=== PATIENT | male | born 1980 | race Caucasian/White ===

== ENCOUNTER 2020-12-08 | Emergency (ER) | payer OTHER, MEDICAID ==
[~2020-12-08] VITALS: Ht 180.3 cm; Wt 100.0 kg
[2020-12-08] MEDS ORDERED: KETOROLAC 60MG/2ML VIAL IM ONE (04:15)
[2020-12-08] MEDS ORDERED: HYDROCODONE/APAP 7.5/325MG 1 TAB TABLET PO ONE (05:45)
[2020-12-08] MEDS ORDERED: HYDR-4005 MT (06:24)
[2020-12-08] MEDS ORDERED: MORPHINE SULFATE 4 MG/ML CPJ (NOT FOR IM USE) IV ONE (07:15)
[2020-12-08] MEDS ORDERED: MORPHINE SULFATE 2 MG/ML CPJ (NOT FOR IM USE) IV NR (07:30)
[2020-12-08] MEDS ORDERED: AMOX-424 MT (08:28)
[2020-12-08] MEDS ORDERED: HYDR-4001 MT (08:29)
[2020-12-08 09:00] VITALS: BP 135/88
== END 2020-12-08 09:30 | disposition home or self-care (01) ==
LOC: ER 03:53
DX: S02.32XA Fracture of orbital floor, left side, initial encounter for closed fracture (principal); S02.40DA Maxillary fracture, left side, initial encounter for closed fracture; S42.022A Displaced fracture of shaft of left clavicle, initial encounter for closed fracture; S02.40FA Zygomatic fracture, left side, initial encounter for closed fracture; S00.03XA Contusion of scalp, initial encounter; V49.59XA Passenger injured in collision with other motor vehicles in traffic accident, initial encounter; Y93.89 Activity, other specified; Y92.411 Interstate highway as the place of occurrence of the external cause
CPT/HCPCS: 70450; 70486; 72125; 73030; 96372; 96374; 99285; J1885; J2270; Z7610